=== PATIENT | male | born 1950 | race Caucasian/White ===

== ENCOUNTER 2017-05-23 10:22 | Inpatient (IN) | payer MEDICARE ==
[2017-05-23] MEDS: Alogliptin 25 MG TAB PO SCH ×2 (20:54→22:02)
[2017-05-23] MEDS: Famotidine 20 MG TAB PO SCH (20:55)
[2017-05-23] MEDS ORDERED: metFORMIN 500 MG TAB PO SCH (21:00)
[2017-05-23] MEDS ORDERED: Atorvastatin Calcium 10 MG TAB PO SCH (21:00)
[2017-05-23] MEDS ORDERED: (Dapagliflozin Propanediol [Farxiga] 5 MG) PO SCH (21:00)
[2017-05-23] MEDS ORDERED: Meropenem 500 MG VIAL ONE (21:10)
[2017-05-23] MEDS ORDERED: Meropenem 1 GM VIAL IVPB SCH (22:00)
[2017-05-23] MEDS: Meropenem 1 GM in Sodium Chloride 0.9% 100 ML IVPB SCH (22:02)
[2017-05-23 22:46] VITALS: BMI 45.0
[2017-05-24] MEDS: Meropenem 1 GM in Sodium Chloride 0.9% 100 ML IVPB SCH (05:46)
[2017-05-24 06:34] LABS: %Lymphocytes 8.7 % (21.0-51.0); %Neutrophils 82.5 % (42.0-75.0); Hemoglobin 9.1 g/dL (14.0-18.0); Mean Corpuscular HGB CONC 31.9 g/dL (32.0-36.0); Mean Corpuscular Volume 81.6 fL (80.0-94.0); Mean Platelet Volume 6.8 fL (7.4-10.4); Platelet Count 391 thou/uL (130-400); RBC Distribution Width 13.8 % (11.5-14.5); Red Blood Cell (RBC) Count 3.48 mill/uL (4.70-6.10); White Blood Cell (WBC) Count 11.8 thou/uL (4.8-10.8)
[2017-05-24 06:35] LABS: #Basophils 0.1 thou/uL (0.0-0.2); #Eosinphils 0.2 thou/uL (0.0-0.7); #Monocytes 0.7 thou/uL (0.11-0.59); #Neutrophils 9.7 thou/uL (1.40-6.50); %Basophils 1.1 % (0.0-1.0); %Monocytes 5.8 % (0.0-10.0)
[2017-05-24 06:36] LABS: Carbon Dioxide 26 mmol/L (23-31); Chloride 93 mmol/L (98-107); Potassium 3.5 mmol/L (3.5-5.1); Sodium 131 mmol/L (136-145)
[2017-05-24 06:37] LABS: Anion Gap 16 mmol/L (10-20); BUN (Urea Nitrogen) 15 mg/dL (8.4-25.7); Bilirubin, Total 0.5 mg/dL (0.2-1.2); Calc. Creatinine Clearance 120 mL/min (70-130); Calcium 8.2 mg/dL (7.8-10.44); Estimated GFR-MDRD 67; Glucose 138 mg/dL (80-115); Protein, Total 7.2 g/dL (5.8-8.1)
[2017-05-24 06:38] LABS: AST (SGOT) 17 U/L (5-34); Albumin 2.7 g/dL (3.4-4.8); Alkaline Phosphatase 77 U/L (40-150); Globulin 4.5 g/dL (2.4-3.5)
[2017-05-24 06:41] LABS: ALT (SGPT) 10 U/L (8-55); Magnesium 1.9 mg/dL (1.6-2.6)
[2017-05-24] MEDS ORDERED: Dextrose 50% Abboject 50 ML SYRINGE SLOW IVP PRN (07:08)
[2017-05-24] MEDS ORDERED: HumaLOG 300 UNITS/3 ML VIAL SC PRN (07:08)
[2017-05-24] MEDS ORDERED: Dextrose 5% in Water 1,000 ML IV PRN (07:08)
[2017-05-24] MEDS ORDERED: Potassium Chloride 20 MEQ TAB PO SCH (08:00)
[2017-05-24] MEDS: Famotidine 20 MG TAB PO SCH (08:27)
[2017-05-24] MEDS ORDERED: Acetaminophen 500 MG TAB PO PRN (08:40)
[2017-05-24] MEDS ORDERED: guaiFENesin 100 MG/5 ML UDCUP PO PRN (08:40)
[2017-05-24] MEDS ORDERED: Lisinopril 20 MG TAB PO SCH (09:00)
[2017-05-24] MEDS ORDERED: Furosemide 40 MG TAB PO SCH (09:00)
[2017-05-24] MEDS ORDERED: Enoxaparin Sodium 30 MG/0.3 ML SYRINGE SC SCH (09:00)
[2017-05-24] MEDS ORDERED: Ferrous Sulfate 325 MG TAB PO SCH (09:00)
[2017-05-24] MEDS ORDERED: Amlodipine 10 MG TAB PO SCH (09:00)
[2017-05-24] MEDS ORDERED: Diabetic Tussin 200 MG/10 ML UDCUP PO PRN (09:55)
[2017-05-24 12:27] LABS: CRP (Inflammatory) 3.54 mg/dL (= or < 0.5)
[2017-05-24] MEDS ORDERED: Sterile Water 20 ML ONE (14:41)
[2017-05-24 17:55] VITALS: BP 142/66; TEMP 99.1
--- NOTE | 2017-05-24 19:32 | CT ---
CT ABDOMEN AND PELVIS WITH CONTRAST 05/24/[address] of the abdomen and pelvis was performed for evaluation of abdominal pain. Comparison is made with a prior scan dated 05/12/17 done at [facility] that showed a left lower lo be consolidation and fluid, as well as an area of stranding beneath the splenic flexure, and some per isplenic and pancreatic tail abscesses. Today's exam shows several changes. The colon is now obstructed proximal to the juncture of the splen ic flexure and upper descending colon at the point of prior stranding. It ranges up to and beyond 10 cm in width and is packed with stool. It transitions to a normal width distal to that point. There is dilation of small bowel which is probably in part secondary to the obstruction. However, an addition al colonic finding is new, significant stranding around the sigmoid colon that was not present before . This finding suggests diverticulitis. The intense inflammatory change around this area seems to sec ondarily cause thickening of some of the distal small bowel which further contributes to its dilation proximal to this point. I do not see any areli abscess collection at this time around this area of p erisigmoid inflammation, though the amount of inflammation present is fairly intense. I do not see an y definite free fluid or free air in this vicinity. While there is not intense opacification of the s uperior mesenteric vein, I do not see any obvious defect in it to suggest thrombosis. There are no cheema ch findings in the portal vein either. Splenic and perisplenic fluid collections are noted as before that are presumably abscesses. There is one that is medial to the spleen and involves the pancreatic tail. This one measures the same as bef ore, about 4.6 cm in width. The splenic and perisplenic collections otherwise, have enlarged slightly . The larger intrasplenic collection today measured 5.2 cm. Regarding the previously seen left lower lobe consolidation and effusion, this area has actually show n some interval improvement since the April scan. Elsewhere, diffuse fatty infiltration of the liver is suggested without hepatomegaly or dilated ducts . The gallbladder is somewhat opaque in density but no stones were seen. The remainder of the pancrea s was unremarkable. The adrenal glands and kidneys showed no acute findings. The abdominal aorta is n ormal in caliber. CT of the pelvis was mainly remarkable for the new inflammatory changes around the sigmoid colon. No free fluid was detected. A Perez catheter is in the urinary bladder decompressing it. IMPRESSION: 1. Colonic obstruction proximal to the juncture of the splenic flexure and descending colon, a n ew finding. The site of obstruction is identical to the area of stranding that was seen and described in this location on the May 12 scan. 2. New intense inflammatory changes around the sigmoid colon. Diverticulitis without areli absce ss is suspected. This inflammatory changes causes secondary thickening of nearby distal small bowel. 3. Splenic and perisplenic fluid collections presumed to be abscesses. Those within the spleen a re slightly larger than they were on May 12. The collection near the tail of the pancreas outside o f the spleen has not changed in size. 4. Left lower lobe consolidation and effusion slightly improved since prior scan. 5. Fatty infiltration of the liver. Findings discussed with Dr Meadows at [id number] on 05/24/17. POS: HOME
--- NOTE | 2017-05-25 02:50 | DIS ---
DATE OF ADMISSION: 05/23/2017 DATE OF DISCHARGE: 05/24/2017 ADMISSION DIAGNOSES: Perisplenic abscess, diverticular disease/abscess, left lower lobe pneumonia with parapneumonic effusion, lower extremity edema, type 2 diabetes mellitus, hypertension, dyslipidemia, hypokalemia, and physical deconditioning. DISCHARGE DIAGNOSES: Include perisplenic abscess, diverticular disease/abscess left lower lobe pneumonia with parapneumonic effusion s/p thoracentesis x2, lower extremity edema, type 2 diabetes mellitus, hypertension, dyslipidemia, hypokalemia, physical deconditioning, large bowel obstruction and sigmoid diverticulitis with worsening of splenic/perisplenic abscess; encopresis. PROCEDURES: A CT of the abdomen and pelvis has been obtained today with the official read pending; however, the preliminary read after speaking with Dr. Gardner shows changes from prior CT on 05/12/2017 including now grossly obstructed colon after the splenic flexure along with massive stranding around the sigmoid like a bad case of diverticulitis, not present from the prior study. In addition to this, the splenic/perisplenic abscess is slightly enlarged. Again, this is a preliminary reading. HOSPITAL COURSE: A 66-year-old male who initially presented to [facility] Emergency Department in [place] on 05/12/2017 with complaints of abdominal pain and worsening shortness of breath who was subsequently found to have a perisplenic abscess and colonic thickening suggestive of colitis. During his stay, he had a CT guided aspiration with negative culture and he was subsequently evaluated by Dr. Toledo, who advised Meropenem 1 gram q.8 hours until 07/03/2017 with planned weekly labs including CBC, CMP and CRP and plan for repeat CT of the abdomen and pelvis with contrast in 4 weeks and additional follow up with Dr. Toledo in 2 weeks. For this, the patient had a PICC line placed to his left upper extremity. Additionally, during his stay, the patient had noted left lower lobe pneumonia with parapneumonic effusion and he is now status post thoracentesis x2 and was able to present to our facility stable on room air. He did present with edema of his lower extremities which was partially felt to be secondary to intravenous fluids versus chronic venous insufficiency for which he was started on Lasix. The patient presented to our facility here at [facility] yesterday as a swing patient to receive his planned course of antibiotics via the PICC line and participate with physical therapy. The nursing staff notified me late this morning that the patient had not voided and yet had had sufficient intake to do so along with receiving Lasix and thus a bladder scan attempted to be obtained; however, his abdominal distention prohibited an accurate reading of this, thus a Perez catheter was placed. The patient notably complained of increasing pain towards the left lower quadrant as well and thus the aforementioned CT of the abdomen and pelvis was ordered. After discussion with the patient, he reports having encopresis like symptoms, loose squirting stools which he reports to have been present for the last approximately 10 days. His last oral intake was at breakfast; however, he did receive oral contrast for his CT scan. He denies having any nausea and has had no vomiting, thus an NG tube has been held at this point. As far as the patient 's vitals, he has developed tachypnea which is felt to be secondary to his abdominal distention and lack of sufficient expansion of his lungs. His current pain status is 1-2/10. He does have his Perez in place. Due to the concern related to his CT findings and current status, I have spoken with Christen Wright at [facility] Emergency [facility] in [place] where the patient will be transferred from his swing status here to the facility where he will likely need surgical consultation and further higher level management. The patient has been instructed to notify of development of any nausea between now and his time period of arrival in [place], so that a NG tube may be placed if appropriate. He is currently afebrile with temp at 99.1 and has remained so at our facility here, as stated tachypneic into the upper 20's with placement of supplemental O2, and tachycardic at 105 with elevated blood pressure at 142/66. The preliminary findings have been discussed with the patient who is agreeable to transfer. DISPOSITION: The patient will transfer as a swing bed status patient from [facility] to the Emergency Department at [facility] in [place]. DISCHARGE MEDICATIONS: Include Tylenol 500 mg p.o. q.8 hours p.r.n., alogliptin 25 mg p.o. at bedtime, amlodipine 10 mg p.o. daily, Lipitor 20 mg p.o. at bedtime, Farxiga 5 mg p.o. at bedtime, Lovenox 30 mg daily, famotidine 20 mg p.o. b.i.d., ferrous sulfate 325, Lasix 40 mg p.o. daily, lisinopril 20 mg p.o. daily, meropenem 1 gram q.8 hours, metformin 2000 mg p.o. at bedtime, and potassium chloride 20 mEq p.o. daily. MTDD
== END 2017-05-24 18:30 | disposition short-term general hospital (02) | DRG 814 ==
LOC: BURMED 16:25
PROVIDERS: ADMIT Family Medicine; ATTEND Family Medicine
DX: D73.3 Abscess of spleen (principal); J18.9 Pneumonia, unspecified organism; K56.609 Unspecified intestinal obstruction, unspecified as to partial versus complete obstruction; K57.20 Diverticulitis of large intestine with perforation and abscess without bleeding; E11.9 Type 2 diabetes mellitus without complications; I10 Essential (primary) hypertension; E78.5 Hyperlipidemia, unspecified; E87.6 Hypokalemia; R15.9 Full incontinence of feces; I87.2 Venous insufficiency (chronic) (peripheral); Z79.84 Long term (current) use of oral hypoglycemic drugs; Z88.0 Allergy status to penicillin
CPT/HCPCS: 36416; 74177; 80053; 83735; 85025; 86140; A4216; G8978-GP-CI; G8979-GP-CH; J1642; J1650; J2185